=== PATIENT | male | born 1950 | race Caucasian/White ===

== ENCOUNTER 2020-08-13 15:16 | Observation (INO) ==
[2020-08-13] MEDS ORDERED: *HR* Metoprolol 5 MG/5 ML VIAL IVP ONE (16:45)
[2020-08-13 17:19] LABS: Basophils # 0.1 K/mcL (0.0-0.2); Basophils % 1.1 %; Eosinophils # 0.2 K/mcL (0.0-0.6); Eosinophils % 2.5 %; Hematocrit 38.1 % (37.5-50.1); Hemoglobin 11.9 g/dL (12.9-16.9); Lymphocytes # 1.3 K/mcL (0.6-4.6); Lymphocytes % 16.1 %; Mean Corpuscular HGB Conc 31.2 g/dL (31.6-35.5); Mean Platelet Volume 10.8 fL (9.4-12.4); Monocytes # 0.9 K/mcL (0.0-1.3); Monocytes % 11.7 %; Neutrophils # 5.4 K/mcL (1.6-8.9); Platelet Count 240 K/mcL (140-400); Red Blood Count 3.97 M/mcL (4.19-5.50); Red Cell Distribution Width 14.4 % (11.5-14.5); Segmented Neutrophils % 67.6 %
[2020-08-13 17:32] LABS: Troponin I 0.04 ng/mL (< 0.04)
[2020-08-13 17:39] LABS: Calcium 8.9 mg/dL (8.6-10.3); Potassium 4.2 mEq/L (3.5-5.1)
[2020-08-13] MEDS: niCARdipine 20 MG/200 ML MLS IVC SCH ×3 (18:06→22:51)
[2020-08-13] MEDS ORDERED: Naloxone 0.4 MG/ML INJ IVP PRN (20:22)
[2020-08-13] MEDS ORDERED: D5% in Water 1,000 ML IVC PRN (20:24)
[2020-08-13] MEDS ORDERED: Dextrose Gel 15 GM/37.5 ML TUBE PO PRN ×2 (20:24)
[2020-08-13] MEDS ORDERED: *HR* Dextrose 50 % in Water (Vial) 50 ML VIAL IVP PRN (20:24)
[2020-08-13] MEDS ORDERED: (Lifitegrast [Xiidra] 1 DROP) OP PRN (23:24)
[2020-08-13] MEDS ORDERED: Nitroglycerin 0.4 MG TAB.SUBL SL PRN (23:24)
[2020-08-14] MEDS: hydrALAZINE 25 MG TABLET PO SCH ×2 (00:02→08:51)
[2020-08-14] MEDS ORDERED: Furosemide 40 MG/4 ML VIAL IVP ONE (00:22)
[2020-08-14] MEDS: niCARdipine 20 MG/200 ML MLS IVC SCH ×2 (00:47→11:51)
[2020-08-14 04:16] LABS: Basophils # 0.1 K/mcL (0.0-0.2); Basophils % 1.1 %; Eosinophils # 0.2 K/mcL (0.0-0.6); Eosinophils % 2.9 %; Hematocrit 33.1 % (37.5-50.1); Hemoglobin 10.4 g/dL (12.9-16.9); Immature Granulocytes % 0.4 % (0-4); Lymphocytes # 1.3 K/mcL (0.6-4.6); Lymphocytes % 17.9 %; Mean Corpuscular HGB Conc 31.4 g/dL (31.6-35.5); Mean Corpuscular Volume 95.4 fL (83.0-100.0); Mean Platelet Volume 10.8 fL (9.4-12.4); Neutrophils # 4.8 K/mcL (1.6-8.9); Platelet Count 214 K/mcL (140-400); Red Blood Count 3.47 M/mcL (4.19-5.50); Red Cell Distribution Width 14.3 % (11.5-14.5); Segmented Neutrophils % 64.7 %; White Blood Count 7.5 K/mcL (4.3-11.1)
[2020-08-14 04:39] LABS: Calcium 8.4 mg/dL (8.6-10.3); Potassium 3.6 mEq/L (3.5-5.1)
[2020-08-14] MEDS ORDERED: *HR* Heparin 5,000 UNIT/ML VIAL SQ SCH (06:00)
[2020-08-14] MEDS: Insulin LISPRO 300 UNITS/3 ML VIAL SQ SCH ×2 (08:38→12:56)
[2020-08-14] MEDS ORDERED: amLODIPine 5 MG TABLET PO SCH ×2 (09:00→21:00)
[2020-08-14] MEDS ORDERED: (Stiolto Respimat Inhal) IH SCH (09:00)
[2020-08-14] MEDS ORDERED: Furosemide 40 MG TABLET PO SCH (09:00)
[2020-08-14] MEDS ORDERED: Isosorbide MONOnitrate (24 HR) 30 MG TAB.ER.24H PO SCH (09:00)
[2020-08-14] MEDS ORDERED: Gabapentin 100 MG CAPSULE PO SCH ×2 (09:00→18:00)
[2020-08-14] MEDS ORDERED: Aspirin 81 MG TAB.CHEW PO SCH (09:00)
[2020-08-14] MEDS ORDERED: Losartan/HCTZ 50-12.5 TABLET PO SCH (09:45)
[2020-08-14 11:57] VITALS: BP 150/42
== END 2020-08-14 14:59 | disposition home or self-care (01) ==
LOC: ICNU 15:16 → EMEROOARM 15:16 → ICNU 20:30
PROVIDERS: ADMIT Student in an Organized Health Care Education/Training Program; ATTEND Student in an Organized Health Care Education/Training Program

== ENCOUNTER 2021-04-27 12:44 | Inpatient (IN) ==
[2021-04-27] MEDS ORDERED: Ondansetron 4 MG/2 ML VIAL ONE (12:57)
[2021-04-27] MEDS ORDERED: 0.9 % Sodium Chloride 1,000 ML ONE ×3 (12:57→14:34)
[2021-04-27] MEDS ORDERED: Ondansetron 4 MG/2 ML VIAL IVP ONE (13:03)
[2021-04-27] MEDS ORDERED: Isovue-370 500 ML BOTTLE IVP ONE (13:03)
[2021-04-27] MEDS ORDERED: 0.9 % Sodium Chloride 1,000 ML IVC ONE ×4 (13:03→16:53)
[2021-04-27 13:23] LABS: Activated Partial Thrombo Time 25.8 Seconds (26.0-36.0)
[2021-04-27 13:34] LABS: Hematocrit 33.6 % (37.5-50.1); Hemoglobin 10.6 g/dL (12.9-16.9); Mean Corpuscular HGB Conc 31.5 g/dL (31.6-35.5); Mean Corpuscular Hemoglobin 28.7 pg (28.0-33.3); Mean Corpuscular Volume 91.1 fL (83.0-100.0); Mean Platelet Volume 11.2 fL (9.4-12.4); Platelet Count 401 K/mcL (140-400); Red Blood Count 3.69 M/mcL (4.19-5.50); Red Cell Distribution Width 14.8 % (11.5-14.5); White Blood Count 12.7 K/mcL (4.3-11.1)
[2021-04-27 13:39] LABS: Blood Urea Nitrogen > 130 mg/dL (8-23); Calcium 8.3 mg/dL (8.6-10.3); Carbon Dioxide 19 mEq/L (23-29); Chloride 109 mEq/L (98-107); Creatine Kinase 35 Units/L (30-223); Glucose 149 mg/dL (70-105); Potassium 3.9 mEq/L (3.5-5.1); Sodium 141 mEq/L (136-145); Troponin I 0.05 ng/mL (< 0.04); eGFR For African Americans 28 (> 60); eGFR For Non-African Americans 23 (> 60)
[2021-04-27 14:19] LABS: Thyroid Stimulating Hormone 8.435 mcIU/mL (0.340-5.600)
[2021-04-27] MEDS ORDERED: Naloxone 0.4 MG/ML INJ IVP PRN (14:31)
[2021-04-27] MEDS ORDERED: Acetaminophen 325 MG TABLET PO PRN (14:31)
[2021-04-27] MEDS ORDERED: Heparin 1,000 UNITS/500 mL 500 ML ONE (14:34)
[2021-04-27] MEDS ORDERED: *HR* Dextrose 50 % in Water (Vial) 50 ML VIAL IVP PRN (14:40)
[2021-04-27] MEDS ORDERED: Dextrose Gel 15 GM/37.5 ML TUBE PO PRN ×2 (14:40)
[2021-04-27] MEDS ORDERED: Albuterol 2.5 MG/3 ML NEBULIZER IH PRN (14:40)
[2021-04-27] MEDS ORDERED: D5% in Water 1,000 ML IVC PRN (14:40)
[2021-04-27] MEDS ORDERED: Perflutren Lipid Microsphere 1.3 ML in 0.9 % Sodium Chloride 8.7 ML IVP PRN (14:49)
[2021-04-27] MEDS: Insulin LISPRO 300 UNITS/3 ML VIAL SUBQ SCH ×3 (16:06→23:17)
[2021-04-27] MEDS: cefTRIAXone 2,000 MG in Water for inj. (sterile) 20 ML IVP SCH (16:12)
[2021-04-27] MEDS: Azithromycin 500 MG in 0.9 % Sodium Chloride 250 ML IVPB SCH (16:13)
[2021-04-27] MEDS: *HR* Heparin 5,000 UNIT/ML VIAL SQ SCH (16:14)
[2021-04-27] MEDS: Ipratropium/Albuterol Neb 3 ML IH SCH ×2 (17:15→21:59)
[2021-04-27] MEDS ORDERED: *HR* Atropine Sulfate 1 MG/10 ML SYRINGE IV ONE (17:26)
[2021-04-27] MEDS: *HR* HYDROcodone/Acet 5/325 mg TABLET PO PRN (17:56)
[2021-04-27 18:01] LABS: Adenovirus Not Detected (Not Detect); Bordetella Pertussis Not Detected (Not Detect); Chlamydophila pneumoniae Not Detected (Not Detect); Coronavirus 229E Not Detected (Not Detect); Coronavirus HKU1 Not Detected (Not Detect); Coronavirus NL63 Not Detected (Not Detect); Coronavirus OC43 Not Detected (Not Detect); Human Metapneumovirus Not Detected (Not Detect); Human Rhinovirus/Enterovirus Not Detected (Not Detect); Influenza A Subtype 2009 H1 Not Detected (Not Detect); Influenza B Not Detected (Not Detect); Mycoplasma pneumoniae Not Detected (Not Detect); Parainfluenza Virus 1 Not Detected (Not Detect); Parainfluenza Virus 2 Not Detected (Not Detect); Parainfluenza Virus 3 Not Detected (Not Detect); Parainfluenza Virus 4 Not Detected (Not Detect); Respiratory Syncytial Virus Not Detected (Not Detect); SARS-CoV-2 Not Detected (Not Detect)
[2021-04-27 18:45] LABS: Bilirubin,Urine Negative (Negative); Blood,Urine Trace (Negative); Clarity,Urine Clear (Clear); Color,Urine Yellow (Yellow); Glucose,Urine (UA) Normal (Normal); Hyaline Casts,Urine Moderate per lpf (None Seen); Ketones,Urine Negative (Negative); Leukocyte Esterase,Urine Negative (Negative); Mucus,Urine Few per lpf (None-Few); Nitrite,Urine Negative (Negative); PH,Urine 5.5 pH Units (5.0-8.0); Protein,Urine Negative (Neg-Trace); RBC,Urine 15-30 per hpf (0-3); Specific Gravity,Urine 1.029 (1.010-1.025); Squamous Epithelial Cell,Urine Few per hpf (None-Few); Urobilinogen,Urine Normal (Normal); WBC,Urine 0-3 per hpf (0-3)
[2021-04-28] MEDS: Ondansetron 4 MG/2 ML VIAL IVP PRN ×2 (01:12→15:27)
[2021-04-28] MEDS: *HR* Heparin 5,000 UNIT/ML VIAL SQ SCH ×4 (02:00→23:33)
[2021-04-28] MEDS: Ipratropium/Albuterol Neb 3 ML IH SCH ×4 (03:50→21:49)
[2021-04-28] MEDS: Insulin LISPRO 300 UNITS/3 ML VIAL SUBQ SCH ×6 (04:13→23:43)
[2021-04-28 04:30] LABS: Basophils # 0.1 K/mcL (0.0-0.2); Basophils % 0.2 %; Eosinophils # 0.1 K/mcL (0.0-0.6); Eosinophils % 0.2 %; Hematocrit 33.4 % (37.5-50.1); Hemoglobin 10.3 g/dL (12.9-16.9); Immature Granulocytes % 1.1 % (0-4); Lymphocytes # 0.7 K/mcL (0.6-4.6); Lymphocytes % 2.9 %; Mean Corpuscular HGB Conc 30.8 g/dL (31.6-35.5); Mean Corpuscular Hemoglobin 28.1 pg (28.0-33.3); Mean Corpuscular Volume 91.3 fL (83.0-100.0); Mean Platelet Volume 10.7 fL (9.4-12.4); Monocytes # 2.2 K/mcL (0.0-1.3); Monocytes % 9.6 %; Platelet Count 407 K/mcL (140-400); Red Blood Count 3.66 M/mcL (4.19-5.50); Red Cell Distribution Width 15.2 % (11.5-14.5); White Blood Count 23.2 K/mcL (4.3-11.1)
[2021-04-28 04:36] LABS: INR 1.1; Prothrombin Time 12.5 Seconds (9.4-12.1)
[2021-04-28 04:51] LABS: Alanine Aminotransferase 44 Units/L (7-52); Albumin 3.1 g/dL (3.5-5.7); Alkaline Phosphatase 107 Units/L (34-104); Aspartate Amino Transferase 23 Units/L (13-39); Bilirubin,Direct 0.1 mg/dL (0.0-0.2); Bilirubin,Indirect 0.3 mg/dL (0.0-1.0); Bilirubin,Total 0.4 mg/dL (0.3-1.0); Blood Urea Nitrogen > 130 mg/dL (8-23); Calcium 7.9 mg/dL (8.6-10.3); Carbon Dioxide 23 mEq/L (23-29); Chloride 109 mEq/L (98-107); Globulin 3.2 g/dL (2.4-3.5); Glucose 188 mg/dL (70-105); Magnesium 3.1 mg/dL (1.6-2.6); Phosphorous 6.3 mg/dL (2.7-4.5); Potassium 4.3 mEq/L (3.5-5.1); Sodium 141 mEq/L (136-145); Total Protein 6.3 g/dL (6.4-8.9); eGFR For African Americans 30 (> 60); eGFR For Non-African Americans 24 (> 60)
[2021-04-28] MEDS: Aspirin 81 MG TAB.CHEW PO SCH (08:00)
[2021-04-28] MEDS: *HR* HYDROcodone/Acet 5/325 mg TABLET PO PRN (08:00)
[2021-04-28] MEDS ORDERED: *HR* HYDROcodone/Acet 5/325 mg TABLET PO ONE (09:20)
[2021-04-28] MEDS: *HR* HYDROcodone/Acet 10/325 mg TABLET PO PRN ×2 (15:19→23:33)
[2021-04-28] MEDS: Azithromycin 500 MG in 0.9 % Sodium Chloride 250 ML IVPB SCH (15:20)
[2021-04-28] MEDS: cefTRIAXone 2,000 MG in Water for inj. (sterile) 20 ML IVP SCH (15:22)
[2021-04-28] MEDS: Pantoprazole 40 MG VIAL IVP SCH (17:07)
[2021-04-28 17:09] LABS: Adenovirus F 40/41 PCR Not detected (Not detect); Astrovirus PCR Not detected (Not detect); C.difficile Toxin A/B Gene PCR Not detected (Not detect); Campylobacter by PCR Not detected (Not detect); Cryptosporidium by PCR Not detected (Not detect); Cyclospora cayetanensis PCR Not detected (Not detect); E. coli O157 by PCR Not detected (Not detect); Entamoeba histolytica PCR Not detected (Not detect); Enteroaggregative E.coli(EAEC) Not detected (Not detect); Enteropathogenic E.coli(EPEC) Not detected (Not detect); Enterotoxigenic E.coli (ETEC) Not detected (Not detect); Giardia lamblia PCR Not detected (Not detect); Norovirus GI/GII PCR Not detected (Not detect); Plesiomonas shigelloides PCR Not detected (Not detect); Rotavirus A PCR Not detected (Not detect); Salmonella PCR Not detected (Not detect); Sapovirus PCR Not detected (Not detect); Shig/EnteroinvasiveE coli EIEC Not detected (Not detect); Shigalike tox-prod E coli STEC Not detected (Not detect); Vibrio PCR Not detected (Not detect); Vibrio cholerae PCR Not detected (Not detect); Yersinia enterocolitica PCR Not detected (Not detect)
[2021-04-29] MEDS: Ipratropium/Albuterol Neb 3 ML IH SCH ×4 (03:47→22:01)
[2021-04-29] MEDS: *HR* HYDROcodone/Acet 5/325 mg TABLET PO PRN ×2 (03:49→09:48)
[2021-04-29] MEDS: Insulin LISPRO 300 UNITS/3 ML VIAL SUBQ SCH ×5 (03:52→21:00)
[2021-04-29 05:29] LABS: Basophils % 0.1 %; Eosinophils # 0.3 K/mcL (0.0-0.6); Eosinophils % 1.7 %; Hematocrit 31.7 % (37.5-50.1); Hemoglobin 10.1 g/dL (12.9-16.9); Immature Granulocytes % 0.8 % (0-4); Lymphocytes # 0.8 K/mcL (0.6-4.6); Lymphocytes % 5.6 %; Mean Corpuscular HGB Conc 31.9 g/dL (31.6-35.5); Mean Corpuscular Volume 91.1 fL (83.0-100.0); Monocytes # 1.1 K/mcL (0.0-1.3); Neutrophils # 12.6 K/mcL (1.6-8.9); Platelet Count 337 K/mcL (140-400); Red Blood Count 3.48 M/mcL (4.19-5.50); Red Cell Distribution Width 15.7 % (11.5-14.5); Segmented Neutrophils % 84.8 %; White Blood Count 14.9 K/mcL (4.3-11.1)
[2021-04-29 05:45] LABS: Calcium 8.1 mg/dL (8.6-10.3); Potassium 4.4 mEq/L (3.5-5.1)
[2021-04-29] MEDS: *HR* Heparin 5,000 UNIT/ML VIAL SQ SCH ×2 (08:56→16:33)
[2021-04-29] MEDS: Pantoprazole 40 MG VIAL IVP SCH (08:56)
[2021-04-29] MEDS: Aspirin 81 MG TAB.CHEW PO SCH (08:57)
[2021-04-29] MEDS ORDERED: 0.9 % Sodium Chloride 1,000 ML ONE (11:13)
[2021-04-29] MEDS ORDERED: 0.9 % Sodium Chloride 500 ML ONE (11:13)
[2021-04-29] MEDS ORDERED: *HR* FentaNYL (PF) 100 MCG/2 ML VIAL ONE (11:21)
[2021-04-29] MEDS ORDERED: *HR* Midazolam HCl 2 MG/2 ML VIAL ONE (11:22)
[2021-04-29] MEDS ORDERED: Naloxone 0.4 MG/ML INJ IVP PRN (14:27)
[2021-04-29] MEDS ORDERED: *HR* HYDROcodone/Acet 10/325 mg TABLET PO PRN (14:27)
[2021-04-29] MEDS ORDERED: Dextrose Gel 15 GM/37.5 ML TUBE PO PRN ×2 (14:27)
[2021-04-29] MEDS ORDERED: Ondansetron 4 MG/2 ML VIAL IVP PRN (14:27)
[2021-04-29] MEDS ORDERED: Albuterol 2.5 MG/3 ML NEBULIZER IH PRN (14:27)
[2021-04-29] MEDS ORDERED: Acetaminophen 325 MG TABLET PO PRN (14:27)
[2021-04-29] MEDS ORDERED: D5% in Water 1,000 ML IVC PRN (14:27)
[2021-04-29] MEDS ORDERED: *HR* Dextrose 50 % in Water (Vial) 50 ML VIAL IVP PRN (14:27)
[2021-04-29] MEDS ORDERED: *HR* HYDROcodone/Acet 5/325 mg TABLET PO PRN (14:27)
[2021-04-29] MEDS ORDERED: CeFAZolin 2 GM/120 ML BAG IVPB SCH (19:00)
[2021-04-30] MEDS: *HR* Heparin 5,000 UNIT/ML VIAL SQ SCH ×3 (00:05→15:24)
[2021-04-30] MEDS: Insulin LISPRO 300 UNITS/3 ML VIAL SUBQ SCH ×4 (00:07→11:19)
[2021-04-30] MEDS: Ipratropium/Albuterol Neb 3 ML IH SCH ×3 (03:29→16:09)
[2021-04-30 06:37] LABS: Basophils % 0.2 %; Eosinophils # 0.3 K/mcL (0.0-0.6); Eosinophils % 1.9 %; Hematocrit 29.9 % (37.5-50.1); Hemoglobin 9.3 g/dL (12.9-16.9); Immature Granulocytes % 0.8 % (0-4); Lymphocytes # 0.7 K/mcL (0.6-4.6); Lymphocytes % 5.3 %; Mean Corpuscular HGB Conc 31.1 g/dL (31.6-35.5); Mean Corpuscular Hemoglobin 28.5 pg (28.0-33.3); Mean Corpuscular Volume 91.7 fL (83.0-100.0); Mean Platelet Volume 11.1 fL (9.4-12.4); Monocytes # 1.1 K/mcL (0.0-1.3); Monocytes % 8.7 %; Neutrophils # 10.9 K/mcL (1.6-8.9); Platelet Count 248 K/mcL (140-400); Red Blood Count 3.26 M/mcL (4.19-5.50); Red Cell Distribution Width 15.6 % (11.5-14.5); Segmented Neutrophils % 83.1 %; White Blood Count 13.1 K/mcL (4.3-11.1)
[2021-04-30 06:56] LABS: Alanine Aminotransferase 24 Units/L (7-52); Albumin 2.8 g/dL (3.5-5.7); Albumin/Globulin Ratio 0.9 (1.1-2.2); Alkaline Phosphatase 86 Units/L (34-104); Aspartate Amino Transferase 15 Units/L (13-39); BUN/Creatinine Ratio 54 (6-26); Bilirubin,Total 0.6 mg/dL (0.3-1.0); Blood Urea Nitrogen 75 mg/dL (8-23); Carbon Dioxide 26 mEq/L (23-29); Chloride 112 mEq/L (98-107); Glucose 110 mg/dL (70-105); Magnesium 3.1 mg/dL (1.6-2.6); Osmolality,Calculated 319 (280-300); Phosphorous 3.2 mg/dL (2.7-4.5); Potassium 4.7 mEq/L (3.5-5.1); Sodium 143 mEq/L (136-145); Total Protein 5.8 g/dL (6.4-8.9); eGFR For African Americans > 60 (> 60); eGFR For Non-African Americans 51 (> 60)
[2021-04-30] MEDS ORDERED: Pantoprazole 40 MG VIAL IVP SCH (09:00)
[2021-04-30] MEDS ORDERED: Aspirin 81 MG TAB.CHEW PO SCH (09:00)
[2021-04-30] MEDS ORDERED: Isosorbide MONOnitrate (24 HR) 60 MG TAB.ER.24H PO SCH (11:45)
[2021-04-30] MEDS ORDERED: Furosemide 40 MG TABLET PO SCH (11:45)
[2021-04-30] MEDS ORDERED: amLODIPine 5 MG TABLET PO SCH (13:00)
[2021-04-30 14:56] VITALS: TEMP 98.7; O2SAT 91
[2021-04-30] MEDS ORDERED: hydrALAZINE 25 MG TABLET PO SCH ×2 (15:00→21:00)
[2021-04-30 16:32] VITALS: BP 166/74; PULSE 80
== END 2021-04-30 17:27 | disposition home or self-care (01) | DRG 242 ==
LOC: EMEROOARM 12:44 → ICNU 14:50 → 3BNU 04-29 10:59
PROVIDERS: ADMIT Pediatrics; ATTEND Pediatrics

== ENCOUNTER 2022-06-28 05:56 | Inpatient (IN) ==
[2022-06-28] MEDS ORDERED: tiZANidine 4 MG TABLET PO ONE (06:30)
[2022-06-28] MEDS ORDERED: Acetaminophen IV 1,000 MG/100 ML BAG IVPB ONE (06:30)
[2022-06-28] MEDS ORDERED: Albuterol 2.5 MG/3 ML NEBULIZER IH ONE (06:30)
[2022-06-28] MEDS ORDERED: *HR* OxyCODONE Immed Rel 5 MG TABLET PO ONE (06:30)
[2022-06-28] MEDS ORDERED: Famotidine 20 MG/2 ML VIAL IVP ONE ×2 (06:30)
[2022-06-28] MEDS ORDERED: Ondansetron 4 MG/2 ML VIAL IVP PRN ×2 (06:35→14:55)
[2022-06-28] MEDS ORDERED: *HR* HYDROmorphone PF 0.5 MG/0.5 ML SYRINGE IVP PRN (06:35)
[2022-06-28] MEDS ORDERED: *HR* OxyCODONE Immed Rel 5 MG TABLET PO PRN (06:35)
[2022-06-28] MEDS ORDERED: *HR* Labetalol 20 MG/4 ML SYRINGE IVP PRN (06:35)
[2022-06-28] MEDS ORDERED: Ipratropium Neb 0.5 MG NEBULIZER IH PRN (06:35)
[2022-06-28] MEDS ORDERED: Acetaminophen IV 1,000 MG/100 ML BAG IVPB PRN (06:35)
[2022-06-28] MEDS ORDERED: *HR* FentaNYL (PF) 100 MCG/2 ML VIAL IVP PRN (06:35)
[2022-06-28] MEDS ORDERED: Albuterol 2.5 MG/3 ML NEBULIZER IH PRN (06:35)
[2022-06-28] MEDS ORDERED: 0.9 % Sodium Chloride 1,000 ML IVC SCH (06:45)
[2022-06-28] MEDS ORDERED: CeFAZolin Syr 3,000MG/30 ML 3,000 MG/30 ML SYRINGE IVPB ONE (06:45)
[2022-06-28] MEDS ORDERED: Heparin 1,000 UNITS/500 mL 500 ML ONE (07:21)
[2022-06-28] MEDS ORDERED: *HR* Succinylcholine 200 MG/10 ML VIAL IVP ONE (07:23)
[2022-06-28] MEDS ORDERED: Lidocaine -MPF 2% 2 ML VIAL ONE (07:23)
[2022-06-28] MEDS ORDERED: *HR* Phenylephrine 10 MG/ML VIAL ONE (07:33)
[2022-06-28] MEDS ORDERED: *HR* Remifentanil 2 MG VIAL IVP ONE ×2 (07:33→09:58)
[2022-06-28] MEDS ORDERED: *HR* Vasopressin 20 UNIT/ML VIAL ONE (08:57)
[2022-06-28] MEDS ORDERED: Albumin Human 5% 0 GM/0 ML IV.SOLN ONE (08:57)
[2022-06-28] MEDS ORDERED: Ondansetron 4 MG/2 ML VIAL ONE (09:18)
[2022-06-28] MEDS ORDERED: tiZANidine 4 MG TABLET PO SCH (10:00)
[2022-06-28] MEDS ORDERED: *HR* Remifentanil 1 MG VIAL IVP ONE ×2 (11:05→11:39)
[2022-06-28] MEDS ORDERED: *HR* Rocuronium Bromide 50 MG/5 ML VIAL ONE (11:55)
[2022-06-28] MEDS ORDERED: *HR* HYDROMORPHONE 2 MG/ML VIAL ONE (11:59)
[2022-06-28] MEDS ORDERED: *HR* FentaNYL (PF) 100 MCG/2 ML VIAL ONE (12:01)
[2022-06-28] MEDS ORDERED: Nitroglycerin 0.4 MG TAB.SUBL SL PRN (14:55)
[2022-06-28] MEDS ORDERED: Naloxone 0.4 MG/ML INJ IVP PRN (14:55)
[2022-06-28] MEDS: *HR* OxyCODONE Immed Rel 5 MG TABLET PO PRN ×2 (15:13→20:15)
[2022-06-28] MEDS: Gabapentin 300 MG CAPSULE PO SCH ×2 (16:16→20:15)
[2022-06-28] MEDS: CeFAZolin 2 GM/120 ML BAG IVPB SCH (16:17)
[2022-06-28] MEDS: *HR* HYDROcodone/Acet 5/325 mg TABLET PO PRN ×2 (16:18→23:22)
[2022-06-28] MEDS: Ringers Solution, Lactated 1,000 ML IVC SCH (18:02)
[2022-06-28] MEDS: Apixaban 5 MG TABLET PO SCH (20:15)
[2022-06-28] MEDS: Baclofen 10 MG TABLET PO SCH (20:15)
[2022-06-29] MEDS: CeFAZolin 2 GM/120 ML BAG IVPB SCH (00:37)
[2022-06-29] MEDS: Ringers Solution, Lactated 1,000 ML IVC SCH ×2 (03:45→14:12)
[2022-06-29] MEDS: *HR* OxyCODONE Immed Rel 5 MG TABLET PO PRN (03:45)
[2022-06-29] MEDS: *HR* HYDROcodone/Acet 5/325 mg TABLET PO PRN ×2 (06:51→18:09)
[2022-06-29] MEDS: Tiotropium 10 INH DOSE IH SCH (07:51)
[2022-06-29] MEDS ORDERED: Losartan/HCTZ 50-12.5 TABLET PO SCH (09:00)
[2022-06-29] MEDS ORDERED: NON-FORMULARY MEDICATION 1 EACH EACH (Omega-3/Dha/Epa/Fish Oil [Fish Oil 1,000 Mg Softgel] PO SCH (09:00)
[2022-06-29] MEDS: Cholecalciferol (D-3) 1,000 UNIT (25MCG) TABLET PO SCH (09:17)
[2022-06-29] MEDS: Furosemide 40 MG TABLET PO SCH (09:17)
[2022-06-29] MEDS: Isosorbide MONOnitrate (24 HR) 60 MG TAB.ER.24H PO SCH (09:17)
[2022-06-29] MEDS: *HR* GlipiZIDE XL (24 HR) 2.5 MG TABLET PO SCH (09:18)
[2022-06-29] MEDS: Apixaban 5 MG TABLET PO SCH ×2 (09:18→21:14)
[2022-06-29] MEDS: Gabapentin 300 MG CAPSULE PO SCH ×3 (09:18→21:13)
[2022-06-29] MEDS: amLODIPine 5 MG TABLET PO SCH (09:19)
[2022-06-29] MEDS: Baclofen 10 MG TABLET PO SCH ×3 (09:19→21:19)
[2022-06-29] MEDS: Losartan/HCTZ 50-12.5 TABLET PO SCH (21:14)
[2022-06-29] MEDS: hydrALAZINE 25 MG TABLET PO SCH (21:14)
[2022-06-30] MEDS: Ringers Solution, Lactated 1,000 ML IVC SCH ×2 (00:21→10:40)
[2022-06-30] MEDS: Tiotropium 10 INH DOSE IH SCH (07:43)
[2022-06-30] MEDS: hydrALAZINE 25 MG TABLET PO SCH ×3 (08:19→20:28)
[2022-06-30] MEDS: Cholecalciferol (D-3) 1,000 UNIT (25MCG) TABLET PO SCH (08:20)
[2022-06-30] MEDS: Apixaban 5 MG TABLET PO SCH ×2 (08:20→20:28)
[2022-06-30] MEDS: Furosemide 40 MG TABLET PO SCH (08:20)
[2022-06-30] MEDS: Isosorbide MONOnitrate (24 HR) 60 MG TAB.ER.24H PO SCH (08:20)
[2022-06-30] MEDS: amLODIPine 5 MG TABLET PO SCH (08:20)
[2022-06-30] MEDS: Gabapentin 300 MG CAPSULE PO SCH ×3 (08:20→20:28)
[2022-06-30] MEDS: *HR* GlipiZIDE XL (24 HR) 2.5 MG TABLET PO SCH (08:20)
[2022-06-30] MEDS: Baclofen 10 MG TABLET PO SCH ×2 (08:20→20:28)
[2022-06-30] MEDS: *HR* HYDROcodone/Acet 5/325 mg TABLET PO PRN ×2 (08:30→20:36)
[2022-06-30] MEDS: *HR* OxyCODONE Immed Rel 5 MG TABLET PO PRN (11:52)
[2022-06-30] MEDS: Acetaminophen 325 MG TABLET PO PRN (15:37)
[2022-06-30] MEDS: Losartan/HCTZ 50-12.5 TABLET PO SCH (20:28)
[2022-07-01] MEDS: Apixaban 5 MG TABLET PO SCH ×2 (10:18→21:23)
[2022-07-01] MEDS: *HR* GlipiZIDE XL (24 HR) 2.5 MG TABLET PO SCH (10:18)
[2022-07-01] MEDS: Gabapentin 300 MG CAPSULE PO SCH ×3 (10:19→21:23)
[2022-07-01] MEDS: Baclofen 10 MG TABLET PO SCH ×2 (10:19→21:23)
[2022-07-01] MEDS: Cholecalciferol (D-3) 1,000 UNIT (25MCG) TABLET PO SCH (10:19)
[2022-07-01] MEDS: hydrALAZINE 25 MG TABLET PO SCH (10:51)
[2022-07-01] MEDS: Furosemide 40 MG TABLET PO SCH (10:52)
[2022-07-01] MEDS: Isosorbide MONOnitrate (24 HR) 60 MG TAB.ER.24H PO SCH (10:52)
[2022-07-01] MEDS: amLODIPine 5 MG TABLET PO SCH (10:52)
[2022-07-01] MEDS: Tiotropium 10 INH DOSE IH SCH (11:54)
[2022-07-01] MEDS ORDERED: 0.9 % Sodium Chloride 500 ML IVC ONE (14:52)
[2022-07-01] MEDS ORDERED: hydrALAZINE 25 MG TABLET PO SCH (15:00)
[2022-07-01 15:58] LABS: Basophils # 0.1 K/mcL (0.0-0.2); Basophils % 0.5 %; Eosinophils # 0.2 K/mcL (0.0-0.6); Eosinophils % 1.8 %; Hematocrit 32.5 % (37.5-50.1); Hemoglobin 10.3 g/dL (12.9-16.9); Immature Granulocytes % 0.7 % (0-4); Lymphocytes # 0.9 K/mcL (0.6-4.6); Lymphocytes % 9.6 %; Mean Corpuscular HGB Conc 31.7 g/dL (31.6-35.5); Mean Corpuscular Hemoglobin 29.9 pg (28.0-33.3); Mean Corpuscular Volume 94.2 fL (83.0-100.0); Mean Platelet Volume 11.2 fL (9.4-12.4); Monocytes # 1.4 K/mcL (0.0-1.3); Neutrophils # 6.6 K/mcL (1.6-8.9); Platelet Count 183 K/mcL (140-400); Red Blood Count 3.45 M/mcL (4.19-5.50); Segmented Neutrophils % 72.4 %; White Blood Count 9.1 K/mcL (4.3-11.1)
[2022-07-01 16:16] LABS: Calcium 8.6 mg/dL (8.6-10.3); Potassium 4.1 mEq/L (3.5-5.1)
[2022-07-02] MEDS ORDERED: *HR* Labetalol 20 MG/4 ML SYRINGE IVP ONE (05:16)
[2022-07-02] MEDS: Acetaminophen 325 MG TABLET PO PRN ×2 (05:30→11:40)
[2022-07-02] MEDS: Cholecalciferol (D-3) 1,000 UNIT (25MCG) TABLET PO SCH (08:57)
[2022-07-02] MEDS: Apixaban 5 MG TABLET PO SCH ×2 (08:57→21:00)
[2022-07-02] MEDS: Baclofen 10 MG TABLET PO SCH ×2 (08:57→21:00)
[2022-07-02] MEDS: Isosorbide MONOnitrate (24 HR) 60 MG TAB.ER.24H PO SCH (08:57)
[2022-07-02] MEDS: Gabapentin 300 MG CAPSULE PO SCH ×3 (08:57→21:00)
[2022-07-02] MEDS: *HR* GlipiZIDE XL (24 HR) 2.5 MG TABLET PO SCH (08:58)
[2022-07-02] MEDS: Furosemide 40 MG TABLET PO SCH (08:58)
[2022-07-02] MEDS: Tiotropium 10 INH DOSE IH SCH (09:36)
[2022-07-03] MEDS ORDERED: Lisinopril-HCTZ 20-12.5mg TABLET PO SCH (10:15)
[2022-07-03] MEDS: Tiotropium 10 INH DOSE IH SCH (10:22)
[2022-07-03] MEDS: Cholecalciferol (D-3) 1,000 UNIT (25MCG) TABLET PO SCH (10:41)
[2022-07-03] MEDS: Gabapentin 300 MG CAPSULE PO SCH ×3 (10:41→20:54)
[2022-07-03] MEDS: Baclofen 10 MG TABLET PO SCH ×2 (10:41→20:54)
[2022-07-03] MEDS: Apixaban 5 MG TABLET PO SCH ×2 (10:41→20:54)
[2022-07-03] MEDS: Isosorbide MONOnitrate (24 HR) 30 MG TAB.ER.24H PO SCH (10:42)
[2022-07-03] MEDS: Furosemide 40 MG TABLET PO SCH (10:42)
[2022-07-03] MEDS: *HR* GlipiZIDE XL (24 HR) 2.5 MG TABLET PO SCH (10:42)
[2022-07-03] MEDS: hydroCHLOROthiazide 25 MG TABLET PO SCH (14:39)
[2022-07-03] MEDS: Acetaminophen 325 MG TABLET PO PRN (14:47)
[2022-07-04 07:38] VITALS: PULSE 68; TEMP 98.7; O2SAT 93
[2022-07-04] MEDS: Tiotropium 10 INH DOSE IH SCH (07:57)
[2022-07-04] MEDS ORDERED: lisinopriL 20 MG TABLET PO SCH (09:00)
[2022-07-04] MEDS: hydroCHLOROthiazide 25 MG TABLET PO SCH (09:56)
[2022-07-04] MEDS: Cholecalciferol (D-3) 1,000 UNIT (25MCG) TABLET PO SCH (09:56)
[2022-07-04] MEDS: Gabapentin 300 MG CAPSULE PO SCH (09:57)
[2022-07-04] MEDS: Apixaban 5 MG TABLET PO SCH (09:57)
[2022-07-04] MEDS: Isosorbide MONOnitrate (24 HR) 30 MG TAB.ER.24H PO SCH (09:57)
[2022-07-04] MEDS: Furosemide 40 MG TABLET PO SCH (09:57)
[2022-07-04] MEDS: *HR* GlipiZIDE XL (24 HR) 2.5 MG TABLET PO SCH (10:01)
[2022-07-04] MEDS: Baclofen 10 MG TABLET PO SCH (10:01)
[2022-07-04] MEDS: *HR* OxyCODONE Immed Rel 5 MG TABLET PO PRN (10:01)
[2022-07-04 11:28] VITALS: BP 170/65
[2022-07-04 13:02] LABS: Influenza A PCR Negative (Negative); Influenza B PCR Negative (Negative); Resp. Syncytial Virus PCR Negative (Negative)
[2022-07-04 13:03] LABS: SARS-CoV-2 by PCR (In House) Negative (Negative)
== END 2022-07-04 15:03 | DRG 472 ==
LOC: 2NNU 05:56 → SDCAOSI 05:56 → 2NNU 14:53 → SDCAOSI 15:14 → 2NNU 15:51 → 4WAOSI 06-30 22:56
PROVIDERS: ADMIT Orthopaedic Surgery Orthopaedic Surgery of the Spine; ATTEND Orthopaedic Surgery Orthopaedic Surgery of the Spine